=== PATIENT | female | born 1965 | race Caucasian/White ===

== ENCOUNTER → 2020-10-15 | Outpatient (CLI) | payer BC, OTHER ==
[~2020-10-15] MED LIST: FLEXERIL 10 MG10 MG PO; IBUPROFEN600 MG PO
== END ==
LOC: KOH-I 15:51
DX: M54.2 Cervicalgia (principal)
CPT/HCPCS: 72040

== ENCOUNTER → 2022-03-05 | Outpatient (CLI) | payer BC | LOC: US 13:44 | DX: E04.1 Nontoxic single thyroid nodule (principal) | CPT/HCPCS: 76536 ==